=== PATIENT | female | born 1930 | race Caucasian/White ===

== ENCOUNTER 2017-10-14 17:04 | Emergency (ER) | payer OTHER, MEDICAID ==
[~2017-10-14] VITALS: Ht 154.9 cm; Wt 54.4 kg
[~2017-10-14 17:04] MED LIST: ACET-2067 PO; ALBU18HF2 INH; AMLO5TAB2 PO; CHOL200010 PO; CHOL200074 PO; CITA20TA16 PO; CITRUCEL PO; DOCU-106 PO; DOCU100C36 PO; FERR325T28 PO; HYDR453.3 TP; LEVO25TA9 PO; LISI40TA4 PO; METH57CR7 TP; MOME13HF2 IH; MOME13HF2 INH; POLY1GRA MC; SIMV20TA6 PO; TRAM50TA2 PO
[2017-10-14] MEDS ORDERED: DONE5TAB34 PO (17:21)
[2017-10-14] MEDS ORDERED: TDAP DIPH,PERTUSS,TET VAC/PF 0.5 ML DISP.SYRIN IM ONE ×2 (18:12→18:15)
--- NOTE | 2017-10-14 18:36 | NUR ---
called [facility] and informed them that the pt is coming home. idris from [facility] requested transfer arrangement for the pt.
--- NOTE | 2017-10-14 18:52 | NUR ---
[facility] provided for pt per request and md hernandez
--- NOTE | 2017-10-14 19:18 | NUR ---
hands off report given to yanet pretty
[2017-10-14] MEDS ORDERED: ACETAMINOPHEN ES 500 MG TABLET PO ONE (19:45)
[2017-10-14] MEDS ORDERED: ACETAMINOPHEN ES 500 MG TABLET ONE (20:03)
[2017-10-14] MEDS ORDERED: CLONIDINE HCL 0.1 MG TABLET ONE (20:23)
[2017-10-14] MEDS ORDERED: CLONIDINE HCL 0.1 MG TABLET PO ONE (20:30)
--- NOTE | 2017-10-14 20:38 | NUR ---
[facility] here to [facility] helper pt & transfer back to facility. Called facility & notified them that pt is going back. No acute distress noted. VSS. All belongings with pt.
[2017-10-14 20:40] VITALS: BP 159/65
== END 2017-10-14 20:42 | disposition home or self-care (01) ==
LOC: ER 17:06
DX: S61.511A Laceration without foreign body of right wrist, initial encounter (principal); S93.402A Sprain of unspecified ligament of left ankle, initial encounter; S93.401A Sprain of unspecified ligament of right ankle, initial encounter; S60.211A Contusion of right wrist, initial encounter; S09.90XA Unspecified injury of head, initial encounter; J44.9 Chronic obstructive pulmonary disease, unspecified; E03.9 Hypothyroidism, unspecified; E78.5 Hyperlipidemia, unspecified; Z88.5 Allergy status to narcotic agent; Z88.8 Allergy status to other drugs, medicaments and biological substances; Z91.018 Allergy to other foods; W01.0XXA Fall on same level from slipping, tripping and stumbling without subsequent striking against object, initial encounter; Y93.89 Activity, other specified; Y92.89 Other specified places as the place of occurrence of the external cause; Y99.8 Other external cause status
CPT/HCPCS: 70450; 72125; 73110; 73610; 90715; A4217; A4663; A9150